=== PATIENT | female | born 1945 | race Caucasian/White ===

== ENCOUNTER 2020-10-04 12:26 | Emergency (ER) | payer MEDICARE ==
[~2020-10-04] VITALS: Ht 160 cm; Wt 86.4 kg
[2020-10-04 13:05] LABS: BASOPHILS # (AUTO) 0.1 X10'3 (0-0.2); BASOPHILS % (AUTO) 0.8 % (0-1); EOSINOPHILS # (AUTO) 0.2 X10'3 (0-0.9); EOSINOPHILS % (AUTO) 2.7 % (0-6); HEMATOCRIT 40.7 % (35.0-45.0); HEMOGLOBIN 13.8 g/dl (12.0-16.0); LYMPHOCYTES % (AUTO) 41.1 % (21-51); MEAN CORPUSCULAR HEMOGLOBIN 31.5 PG (27.0-31.0); MEAN CORPUSCULAR HGB CONC 33.8 g/dL (33.0-36.5); MEAN CORPUSCULAR VOLUME 93.2 FL (78-98); MEAN PLATELET VOLUME 8.5 FL (7.4-10.4); MONOCYTES # (AUTO) 0.9 X10'3 (0-0.9); MONOCYTES % (AUTO) 11.6 % (2-12); NEUTROPHILS # (AUTO) 3.2 X10'3 (1.8-7.7); NEUTROPHILS % (AUTO) 43.8 % (42-75); PLATELET COUNT 226 X10'3 (140-440); RED BLOOD COUNT 4.36 X10'6 (4.20-5.60); RED CELL DISTRIBUTION WIDTH 12.6 % (11.5-14.5); WHITE BLOOD COUNT 7.4 X10'3 (4.5-11.0)
[2020-10-04 13:32] LABS: ALANINE AMINOTRANSFERASE 25 U/L (12-78); ALBUMIN/GLOBULIN RATIO 1.1 (1.1-1.5); ALKALINE PHOSPHATASE 83 IU/L (46-116); ANION GAP 11 (8-16); ASPARTATE AMINO TRANSFERASE 20 U/L (10-37); BILIRUBIN,TOTAL 1.1 MG/DL (0.1-1.0); BLOOD UREA NITROGEN 18 MG/DL (7-18); BUN/CREATININE RATIO 18.2 (6.6-38.0); CALCIUM 8.9 MG/DL (8.5-10.1); CHLORIDE 100 MMOL/L (99-107); CREATININE 0.99 MG/DL (0.40-0.90); GLUCOSE 101 MG/DL (70-104); POTASSIUM 3.4 MMOL/L (3.5-5.1); SODIUM 140 MMOL/L (135-145); TOTAL CARBON DIOXIDE 29.1 MMOL/L (24-32); TOTAL PROTEIN 7.8 G/DL (6.4-8.2); eGFR 55 ML/MIN
[2020-10-04] MEDS ORDERED: normal saline 1000ML IV soln IVB ONE (14:20)
--- NOTE | 2020-10-04 15:30 | NUR ---
DR MAGDALENA WALL WITH DISCHARGE WITHOUT IV FLUID OR URINE OBTAINED
[2020-10-04 16:22] VITALS: BP 158/89
== END 2020-10-04 16:05 | disposition home or self-care (01) ==
LOC: ER 12:27
DX: R06.09 Other forms of dyspnea (principal); R07.89 Other chest pain; R06.02 Shortness of breath; Z95.0 Presence of cardiac pacemaker; Z72.89 Other problems related to lifestyle; Z88.8 Allergy status to other drugs, medicaments and biological substances; Z88.1 Allergy status to other antibiotic agents
CPT/HCPCS: 36415; 71045; 80053; 83880; 84484; 85025; 93005; 99285

== ENCOUNTER 2023-06-28 13:37 | Inpatient (IN) | payer MEDICARE ==
[~2023-06-28] VITALS: Ht 160 cm; Wt 90.4 kg
[2023-06-28 14:04] LABS: BASOPHILS # (AUTO) 0.1 X10'3 (0-0.2); BASOPHILS % (AUTO) 0.8 % (0-1); EOSINOPHILS # (AUTO) 0.2 X10'3 (0-0.9); EOSINOPHILS % (AUTO) 1.4 % (0-6); HEMATOCRIT 42.1 % (35.0-45.0); HEMOGLOBIN 14.1 g/dl (12.0-16.0); LYMPHOCYTES # (AUTO) 4.4 X10'3 (1.1-4.8); LYMPHOCYTES % (AUTO) 36.9 % (21-51); MEAN CORPUSCULAR HEMOGLOBIN 30.9 PG (27.0-31.0); MEAN CORPUSCULAR HGB CONC 33.4 g/dL (33.0-36.5); MEAN CORPUSCULAR VOLUME 92.4 FL (78-98); MEAN PLATELET VOLUME 8.8 FL (7.4-10.4); MONOCYTES # (AUTO) 1.3 X10'3 (0-0.9); MONOCYTES % (AUTO) 11.1 % (2-12); NEUTROPHILS % (AUTO) 49.8 % (42-75); PLATELET COUNT 275 X10'3 (140-440); RED BLOOD COUNT 4.56 X10'6 (4.20-5.60); RED CELL DISTRIBUTION WIDTH 12.4 % (11.5-14.5); WHITE BLOOD COUNT 12.1 X10'3 (4.5-11.0)
[2023-06-28 14:26] LABS: ALANINE AMINOTRANSFERASE 29 U/L (12-78); ALBUMIN 3.8 G/DL (3.4-5.0); ALKALINE PHOSPHATASE 107 IU/L (46-116); ANION GAP 11 (8-16); ASPARTATE AMINO TRANSFERASE 22 U/L (10-37); BILIRUBIN,TOTAL 0.9 MG/DL (0.1-1.0); BLOOD UREA NITROGEN 32 MG/DL (7-18); BUN/CREATININE RATIO 22.2 (10.0-20.0); CALCIUM 9.2 MG/DL (8.5-10.1); CHLORIDE 99 MMOL/L (99-107); CREATININE 1.44 MG/DL (0.40-0.90); GLUCOSE 156 MG/DL (70-104); PRO BRAIN NATRIURETIC PEPTIDE 4507 PG/ML (0-450); SODIUM 135 MMOL/L (135-145); TOTAL CARBON DIOXIDE 25.1 MMOL/L (24-32); TOTAL PROTEIN 7.7 G/DL (6.4-8.2); eCRCL 27 ML/MIN; eGFR 35 ML/MIN
[2023-06-28 14:28] LABS: POTASSIUM 2.8 MMOL/L (3.5-5.1)
[2023-06-28] MEDS ORDERED: aspirin 81mg tab.chew PO ONE (14:30)
[2023-06-28] MEDS ORDERED: potassium Cl 40MEQ/1/2NS 520ml 520 ML IV ONE (16:45)
[2023-06-28] MEDS ORDERED: potassium Cl 20 mEq SR tablet PO STA (16:46)
[2023-06-28] MEDS ORDERED: normal saline 1000ML IV soln IVB ONE (16:50)
[2023-06-28] MEDS ORDERED: magnesium Cl slow-release 64mg tablet PO PRN (17:50)
[2023-06-28] MEDS ORDERED: magnesium 2GM in 50ml NS 50 ML IV PRN (17:50)
[2023-06-28] MEDS: normal saline 1000ml 1,000 ML IV SCH (17:50)
[2023-06-28] MEDS ORDERED: acetaminophen 325mg tablet PO PRN (17:50)
[2023-06-28] MEDS ORDERED: magnesium 4gm in 100ml NS 100 ML IV PRN (17:50)
[2023-06-28] MEDS ORDERED: ondansetron/PF 4mg/2ml inj IV PRN (17:50)
[2023-06-28] MEDS ORDERED: potassium Cl 40MEQ/1/2NS 520ml 520 ML IV PRN (17:50)
[2023-06-28] MEDS ORDERED: potassium Cl 20 mEq SR tablet PO PRN ×2 (17:50)
[2023-06-28] MEDS ORDERED: LANS30CA56 PO (17:53)
[2023-06-28] MEDS ORDERED: CARV-50 PO (17:53)
[2023-06-28] MEDS ORDERED: LOSA100T58 PO (17:53)
[2023-06-28] MEDS ORDERED: MONT-40 PO (17:53)
[2023-06-28] MEDS ORDERED: FLEC100T PO (17:53)
[2023-06-28] MEDS ORDERED: WARF2.5T82 PO (17:53)
[2023-06-28] MEDS ORDERED: WARF-55 PO (17:53)
[2023-06-28] MEDS ORDERED: FURO20TA4 PO (17:53)
[2023-06-28 18:11] LABS: INR 1.9 INR
[2023-06-28 19:10] LABS: BILIRUBIN,URINE NEGATIVE (Neg); CLARITY,URINE TURBID (Clear); COLOR,URINE YELLOW (Yellow); GLUCOSE, URINE NEGATIVE (Neg); KETONES,URINE NEGATIVE (Neg); LEUKOCYTE ESTERASE ,URINE TRACE (Neg); NITRITES, URINE POSITIVE (Neg); OCCULT BLOOD,URINE NEGATIVE (Neg); PROTEIN,URINE NEGATIVE (Neg); UROBILINOGEN,URINE 0.2 E.U/dL (0.2-1.0)
[2023-06-28 19:21] LABS: UA COLLECTION TYPE VOIDED
[2023-06-28 19:23] LABS: SQUAMOUS EPITHELIAL CELL,UR MANY /LPF (FEW)
[2023-06-28 19:24] LABS: BACTERIA,URINE 3+ /HPF (Neg); MUCUS STRANDS FEW /LPF (Neg)
[2023-06-28 19:25] LABS: RBC,URINE NONE SEEN /HPF (0-2); WBC,URINE 50-100 /HPF (0-4)
--- NOTE | 2023-06-28 19:30 | NUR ---
I agree with ЕКАТЕРИНА Moon assessment of this patient.
[2023-06-28] MEDS: carVEDilol 12.5mg tablet PO SCH (20:18)
[2023-06-28] MEDS: flecainide 50mg tablet PO SCH (20:18)
[2023-06-28] MEDS: enoxaparin 40mg/0.4ml syringe SQ SCH (20:19)
[2023-06-29] MEDS: acetaminophen 325mg tablet PO SCH ×4 (00:15→21:56)
[2023-06-29 04:22] LABS: HEMATOCRIT 39.9 % (35.0-45.0); HEMOGLOBIN 13.4 g/dl (12.0-16.0); MEAN CORPUSCULAR HGB CONC 33.5 g/dL (33.0-36.5); MEAN CORPUSCULAR VOLUME 92.5 FL (78-98); MEAN PLATELET VOLUME 9.7 FL (7.4-10.4); PLATELET COUNT 234 X10'3 (140-440); RED BLOOD COUNT 4.31 X10'6 (4.20-5.60); RED CELL DISTRIBUTION WIDTH 12.3 % (11.5-14.5); WHITE BLOOD COUNT 13.1 X10'3 (4.5-11.0)
[2023-06-29 04:31] LABS: ALANINE AMINOTRANSFERASE 26 U/L (12-78); ALBUMIN 3.4 G/DL (3.4-5.0); ALBUMIN/GLOBULIN RATIO 0.9 (1.1-1.5); ALKALINE PHOSPHATASE 96 IU/L (46-116); ANION GAP 9 (8-16); ASPARTATE AMINO TRANSFERASE 17 U/L (10-37); BILIRUBIN,TOTAL 0.9 MG/DL (0.1-1.0); BLOOD UREA NITROGEN 33 MG/DL (7-18); CALCIUM 9.1 MG/DL (8.5-10.1); CHLORIDE 101 MMOL/L (99-107); CREATININE 1.27 MG/DL (0.40-0.90); GLUCOSE 114 MG/DL (70-104); POTASSIUM 3.5 MMOL/L (3.5-5.1); SODIUM 135 MMOL/L (135-145); TOTAL CARBON DIOXIDE 25.2 MMOL/L (24-32); TOTAL PROTEIN 7.1 G/DL (6.4-8.2); eCRCL 31 ML/MIN; eGFR 41 ML/MIN
[2023-06-29 04:32] LABS: EOSINOPHILS % (AUTO) 1.8 % (0-6); LYMPHOCYTES % (AUTO) 38.5 % (21-51); MONOCYTES % (AUTO) 12.5 % (2-12); NEUTROPHILS # (AUTO) 6.1 X10'3 (1.8-7.7); NEUTROPHILS % (AUTO) 46.2 % (42-75)
[2023-06-29 04:33] LABS: BASOPHILS # (AUTO) 0.1 X10'3 (0-0.2); EOSINOPHILS # (AUTO) 0.2 X10'3 (0-0.9); LYMPHOCYTES # (AUTO) 5.1 X10'3 (1.1-4.8); MONOCYTES # (AUTO) 1.6 X10'3 (0-0.9)
--- NOTE | 2023-06-29 07:23 | NUR ---
RN ATTEMPTED TO CALL REPORT AND FLOOR RN WILL CALL RN BACK
[2023-06-29] MEDS ORDERED: losartan 50mg tablet PO SCH (08:00)
--- NOTE | 2023-06-29 08:01 | NUR ---
RN ATTEMPTED TO LOCATE PRINTED EKG AND IT WAS NOT IN PT RM/ DESK/ON EKG MACHINES. MD NOTE STATES COMP AT 2471 06/28. PT CHRONIC AFIB WITH PM. RN NOTIFIED DYNAMO REPAIRER DONNA AND PRINCE MEJIA.
[2023-06-29 08:13] VITALS: BP 155/89; PULSE 102; RESP 16; TEMP 98.4; O2SAT 96
--- NOTE | 2023-06-29 08:26 | NUR ---
EKG WAS LOCATED P/T TRANSFER TO FLOOR PER PIGMENT GRINDER
[2023-06-29 08:40] VITALS: RESP 18; O2SAT 97
[2023-06-29] MEDS: montelukast 10mg tablet PO SCH (09:27)
[2023-06-29] MEDS: carVEDilol 12.5mg tablet PO SCH ×2 (09:28→21:50)
[2023-06-29] MEDS: flecainide 50mg tablet PO SCH ×2 (09:29→21:50)
[2023-06-29 11:18] VITALS: BP 132/69; PULSE 106; RESP 22; TEMP 98.6; O2SAT 97
[2023-06-29] MEDS: normal saline 1000ml 1,000 ML IV SCH ×2 (12:11→21:49)
[2023-06-29] MEDS ORDERED: ondansetron 4mg rapidly disintigrating tab PO PRN (13:40)
[2023-06-29 15:00] VITALS: BP 102/49; PULSE 65; RESP 21; TEMP 98.1; O2SAT 94
[2023-06-29 15:08] LABS: BASOPHILS # (AUTO) 0.1 X10'3 (0-0.2); EOSINOPHILS # (AUTO) 0.2 X10'3 (0-0.9); EOSINOPHILS % (AUTO) 2.1 % (0-6); HEMATOCRIT 37.5 % (35.0-45.0); HEMOGLOBIN 12.6 g/dl (12.0-16.0); LYMPHOCYTES # (AUTO) 2.7 X10'3 (1.1-4.8); LYMPHOCYTES % (AUTO) 33.9 % (21-51); MEAN CORPUSCULAR HEMOGLOBIN 31.4 PG (27.0-31.0); MEAN CORPUSCULAR HGB CONC 33.7 g/dL (33.0-36.5); MEAN CORPUSCULAR VOLUME 93.3 FL (78-98); MEAN PLATELET VOLUME 9.1 FL (7.4-10.4); MONOCYTES # (AUTO) 1.1 X10'3 (0-0.9); MONOCYTES % (AUTO) 13.6 % (2-12); NEUTROPHILS # (AUTO) 3.9 X10'3 (1.8-7.7); NEUTROPHILS % (AUTO) 49.4 % (42-75); PLATELET COUNT 209 X10'3 (140-440); RED BLOOD COUNT 4.02 X10'6 (4.20-5.60); RED CELL DISTRIBUTION WIDTH 12.3 % (11.5-14.5); WHITE BLOOD COUNT 7.8 X10'3 (4.5-11.0)
--- NOTE | 2023-06-29 15:54 | NUR ---
PAGER ID: [phone] MESSAGE: [id number] [address]. Pacer is possibly pacing incorrectly. Please call theodore FARIAS.
--- NOTE | 2023-06-29 16:21 | NUR ---
PAGER ID: [phone] MESSAGE: [id number] Neves. we are interrogating Pacer at the bedside in few minutes. Maria Esther FARIAS
--- NOTE | 2023-06-29 17:28 | NUR ---
PAGER ID: [phone] MESSAGE: [id number]. We have to wait for PPM rep to come. unknown time. EKG in chart. all good. no PPM spikes to see. Tele strip in chart with odd spikes. Maria Esther FARIAS
--- NOTE | 2023-06-29 17:47 | NUR ---
PAGER ID: [phone] MESSAGE: [id number] [address]. Michaels stated that this is something that her PPM does due to her lead placement and were impressed that we checked. Maria Esther FARIAS. Will you D/C her now? #[id number]
[2023-06-29 18:00] VITALS: BP 127/66; PULSE 68; RESP 18; TEMP 98.6; O2SAT 97
--- NOTE | 2023-06-29 18:38 | NUR ---
Problems reprioritized. Patient report given, questions answered & plan of care reviewed with Debora MEJIA. Pt denies needsCall light in reach. Addendum: 06/29/23 at 1839 by Maria Esther Marroquin RN Amended: Links added.
[2023-06-29 20:00] VITALS: RESP 16
[2023-06-29] MEDS: enoxaparin 40mg/0.4ml syringe SQ SCH (21:51)
[2023-06-30 02:11] VITALS: BP 150/71; PULSE 63; RESP 18; TEMP 97.1; O2SAT 96
--- NOTE | 2023-06-30 06:40 | NUR ---
Patient in room PCU 3021. I have received report from Debora MEJIA and had the opportunity to ask questions and assume patient care.
--- NOTE | 2023-06-30 06:43 | NUR ---
Report given to Iris WILLAMS. Pt awake and doing well.
[2023-06-30 06:52] LABS: BASOPHILS # (AUTO) 0.1 X10'3 (0-0.2); EOSINOPHILS # (AUTO) 0.2 X10'3 (0-0.9); EOSINOPHILS % (AUTO) 2.6 % (0-6); HEMATOCRIT 33.7 % (35.0-45.0); HEMOGLOBIN 11.4 g/dl (12.0-16.0); LYMPHOCYTES # (AUTO) 2.9 X10'3 (1.1-4.8); LYMPHOCYTES % (AUTO) 42.2 % (21-51); MEAN CORPUSCULAR HEMOGLOBIN 31.5 PG (27.0-31.0); MEAN CORPUSCULAR HGB CONC 33.8 g/dL (33.0-36.5); MEAN CORPUSCULAR VOLUME 93.3 FL (78-98); MEAN PLATELET VOLUME 8.9 FL (7.4-10.4); MONOCYTES # (AUTO) 0.8 X10'3 (0-0.9); MONOCYTES % (AUTO) 11.3 % (2-12); NEUTROPHILS # (AUTO) 2.9 X10'3 (1.8-7.7); NEUTROPHILS % (AUTO) 42.9 % (42-75); PLATELET COUNT 183 X10'3 (140-440); RED BLOOD COUNT 3.61 X10'6 (4.20-5.60); RED CELL DISTRIBUTION WIDTH 12.1 % (11.5-14.5); WHITE BLOOD COUNT 6.8 X10'3 (4.5-11.0)
[2023-06-30 07:00] VITALS: BP 174/81; PULSE 62; RESP 18; TEMP 98; O2SAT 97
[2023-06-30 07:05] LABS: ALANINE AMINOTRANSFERASE 24 U/L (12-78); ALBUMIN 3.1 G/DL (3.4-5.0); ALKALINE PHOSPHATASE 81 IU/L (46-116); ASPARTATE AMINO TRANSFERASE 17 U/L (10-37); BILIRUBIN,TOTAL 0.8 MG/DL (0.1-1.0); BLOOD UREA NITROGEN 21 MG/DL (7-18); BUN/CREATININE RATIO 22.8 (10.0-20.0); CALCIUM 8.7 MG/DL (8.5-10.1); CREATININE 0.92 MG/DL (0.40-0.90); GLUCOSE 98 MG/DL (70-104); TOTAL PROTEIN 6.2 G/DL (6.4-8.2); eCRCL 42 ML/MIN; eGFR 59 ML/MIN
[2023-06-30 07:25] LABS: ANION GAP 5 (8-16); CHLORIDE 103 MMOL/L (99-107); POTASSIUM 3.5 MMOL/L (3.5-5.1); SODIUM 138 MMOL/L (135-145)
[2023-06-30] MEDS ORDERED: losartan 50mg tablet PO SCH (08:00)
[2023-06-30] MEDS: flecainide 50mg tablet PO SCH (09:02)
[2023-06-30] MEDS: acetaminophen 325mg tablet PO SCH (09:02)
[2023-06-30 09:03] VITALS: BP_SYST 174; PULSE 62
[2023-06-30] MEDS: normal saline 1000ml 1,000 ML IV SCH (09:03)
[2023-06-30] MEDS: carVEDilol 12.5mg tablet PO SCH (09:03)
[2023-06-30] MEDS: montelukast 10mg tablet PO SCH (09:03)
--- NOTE | 2023-06-30 10:25 | NUR ---
AGREE WITH PARTY DEMONSTRATOR AM ASSESSMENT
--- NOTE | 2023-06-30 10:50 | NUR ---
Patient discharged home with all belongings and discharge instructions. IV removed and tele monitor removed and returned to television tube inspector. Escorted out via wheel chair and left in private vehicle.
== END 2023-06-30 10:50 | disposition home or self-care (01) | DRG 682 ==
LOC: ER 13:38 → ED HOLD 17:55 → EDBEDREQ 06-29 05:49 → PCU 3S 06-29 08:43
PROVIDERS: ADMIT Internal Medicine; ATTEND Internal Medicine
PROC: 4B02XSZ Measurement of Cardiac Pacemaker, External Approach (ICD-10-PCS; principal; 2023-06-30)
DX: N17.9 Acute kidney failure, unspecified (principal); I21.A1 Myocardial infarction type 2; I48.20 Chronic atrial fibrillation, unspecified; I50.32 Chronic diastolic (congestive) heart failure; N18.30 Chronic kidney disease, stage 3 unspecified; E87.6 Hypokalemia; I08.1 Rheumatic disorders of both mitral and tricuspid valves; I25.10 Atherosclerotic heart disease of native coronary artery without angina pectoris; Z88.1 Allergy status to other antibiotic agents; Z88.8 Allergy status to other drugs, medicaments and biological substances; Z95.0 Presence of cardiac pacemaker; Z79.899 Other long term (current) drug therapy; Z79.01 Long term (current) use of anticoagulants
CPT/HCPCS: 36415; 71045; 80053; 81001; 83735; 83880; 84145; 84484; 85025; 85610; 85651; 93005; 93306; 97161; 97530; 99285; A4615; G0378; J1650; J3480; J7030